=== PATIENT | male | born 2000 | race Caucasian/White ===

== ENCOUNTER 2024-05-07 23:47 | Emergency (ER) | payer SELFPAY ==
[~2024-05-07] VITALS: Ht 175.3 cm; Wt 68.2 kg
[2024-05-08 00:17] VITALS: TEMP 97.8
[2024-05-08] MEDS ORDERED: Home HYDROcodone/Acetaminophen 5/325 MG #4 TABS/PACK PO ONE (03:00)
[2024-05-08 03:07] VITALS: BP 106/61; PULSE 80
== END 2024-05-08 03:07 | disposition home or self-care (01) ==
LOC: COL.ER 23:47
DX: S09.90XA Unspecified injury of head, initial encounter (principal); S92.355A Nondisplaced fracture of fifth metatarsal bone, left foot, initial encounter for closed fracture; S00.01XA Abrasion of scalp, initial encounter; F17.200 Nicotine dependence, unspecified, uncomplicated; W01.0XXA Fall on same level from slipping, tripping and stumbling without subsequent striking against object, initial encounter; Y93.01 Activity, walking, marching and hiking
CPT/HCPCS: 31868; L4386